=== PATIENT | male | born 1955 | race Two or more races ===

== ENCOUNTER 2019-09-28 13:03 | Emergency (ER) | payer MEDICAID ==
[~2019-09-28] VITALS: Ht 188 cm; Wt 77.1 kg
[~2019-09-28 13:03] MED LIST: CARISOPRODOL350 MG ORAL; ZYPREXA2.5 MG ORAL
[2019-09-28 13:16] VITALS: BP 149/100
--- NOTE | 2019-09-28 13:52 | Emergency Room Report ---
History of Present Illness General Chief Complaint: Generalized Weakness Source: Patient (Ela Lawton) Present Illness HPI 64-year-old male presents to the emergency department brought by ambulance for altered mental status. HPI and ROS are limited due to patient level of consciousness. Most information gathered from medications that were on his person. Medications suggestive of seizure disorder, hypothyROID, and BPH are found. Patient has history of spinal surgeries and neck surgery. Patient is mildly responsive to loud verbal or painful stimuli. Unable to hold conversation. (Ela Lawton) Allergies: Uncoded Allergies: PENICILLIN (Allergy, Unknown, 09/28/19) COVID-19 Screening Contact w/high risk pt: No Recent Travel to affected area: No Experienced COVID-19 symptoms?: No COVID-19 Testing performed MULTICUT LINE OPERATOR: No (Ela Lawton) Patient History Past Medical History: see triage record Past Surgical History: unable to obtain Pertinent Family History: unable to obtain Reviewed Nursing Documentation: PMH: Agreed; PSxH: Agreed (Ela Lawton) Nursing Documentation-PMH Past Medical History: No History, Except For Hx Cardiac Problems: No - respiratory failure History Of Psychiatric Problem: Yes (Ela Lawton) Review of Systems All Other Systems: limited (Ela Lawton) Physical Exam Vital Signs Date Time Temp Pulse Resp B/P (MAP) Pulse Ox O2 Delivery O2 Flow Rate FiO2 09/28/19 12:58 97.2 94 17 145/75 (98) Room Air 09/28/19 13:16 96 (Ela Lawton) Medical Decision Making PA Attestation Dr. Salas is my supervising Physician whom patient management has been discussed with. (Ela Lawton) Diagnostic Impression: Primary Impression: Rhabdomyolysis Qualified Codes: M62.82 - Rhabdomyolysis Additional Impression: Altered mental status Qualified Codes: R41.82 - Altered mental status, unspecified ER Course Pt. presents to the ED c/o altered level of consciousness - patient is arousable however not oriented. 64-year-old male presents to the emergency department brought by ambulance for altered mental status. HPI and ROS are limited due to patient level of consciousness. Most information gathered from medications that were on his person. Medications suggestive of seizure disorder, hypothyROID, and BPH are found. Patient has history of spinal surgeries and neck surgery. Patient is mildly responsive to loud verbal or painful stimuli. Unable to hold conversation. Pt is still moaning, arousable to loud verbal commands, or painful stimuli Ddx considered but are not limited to OD, SI/HI, psychosis, UTI, intoxication, intracranial process, ETOH, Sepsis Vital signs: are WNL, pt. is afebrile H&PE are most consistent with possible intoxication. There is no obvious signs of trauma. ORDERS: -ACCU-CHECK: 99 -EK bpm normal sinus rhythm with incomplete right bundle branch block, mildly prolonged QT interval 406/491.--This Interpretation was scribed by DOMI Lawton. -UA: -UDS: POSITIVE FOR Benzo, Opiates, THC, and cocaine -CT HEAD NO CONTRAST: Unremarkable ED INTERVENTIONS: - 1000cc NS + Maintenance DISPOSITION: at this time pt. will be admitted to [ ] for Rhabdomyolysis and AMS. [ ] agreed to admit the pt. and to continue pt. care management. (Ela Lawton) ER Course Patient seen and evaluated by my PA Jered please see her note for full history and physical Work-up included labs and CT. CT negative. Drug screen positive for multiple substances. Mild rhabdomyolysis noted. Patient remains altered. No signs of distress. I agree with admission. And endorsed to physician at [facility] (Troy Choudhary MD) EKG Diagnostic Results EP Interpretation: Dr. Salas Rate: normal - 88 Rhythm: NSR Other Impression QT prolongation -mild- 406/491 ASA given to the pt in ED: No PA Scribe Text This Interpretation was scribed by DOMI Lawton. (Ela Lawton) Last Vital Signs Date Time Temp Pulse Resp B/P (MAP) Pulse Ox O2 Delivery O2 Flow Rate FiO2 09/28/19 13:18 88 16 Room Air 09/28/19 13:16 97.2 149/100 96 (Ela Lawton) Status: improved (Troy Choudhary MD) Disposition: SHORT-TERM HOSP Condition: Serious Referrals: [facility],REFERRING (PCP) Ela Lawton September 28, 2019 13:52 Troy Choudhary MD September 28, 2019 17:28
[2019-09-28] MEDS ORDERED: Naloxone 1mg/ml 2ml IVP ONE (14:00)
--- NOTE | 2019-09-28 14:18 | Diagnostic Imaging Report ---
EXAM: CT Head Without Intravenous Contrast CLINICAL HISTORY: ALOC TECHNIQUE: Axial computed tomography images of the head/brain without intravenous contrast. CTDI is 53.4 mGy and DLP is 1179.1 mGy-cm. One or more of the following dose reduction techniques were used: automated exposure control, adjustment of the mA and/or kV according to patient size, use of iterative reconstruction technique. COMPARISON: None FINDINGS: Brain: No acute infarct or hemorrhage. No extra-axial fluid collection. No mass effect or midline shift. Ventricles and sulci: Normal. No ventriculomegaly or intraventricular hemorrhage. Bones: Plate and screw fixation of the right mandibular condyle. No bony lesion or fracture. Subcutaneous tissues: Normal. Sinuses: Mucosal thickening in the maxillary sinuses, sphenoid sinuses, ethmoid air cells, and frontal sinuses. Mastoid air cells: Normal. Orbits: Grossly unremarkable. Other: Atherosclerotic calcifications of the intracranial vasculature. IMPRESSION: No acute intracranial abnormality.
[2019-09-28 14:26] LABS: HEMOGLOBIN 14.7 G/DL (14.2-18.0); MEAN CORPUSCULAR VOLUME 92 FL (80-99); PLATELET COUNT 301 K/UL (150-450); RED BLOOD COUNT 4.58 M/UL (4.70-6.10); RED CELL DISTRIBUTION WIDTH 11.3 % (11.6-14.8); WHITE BLOOD COUNT 6.8 K/UL (4.8-10.8)
[2019-09-28 14:27] LABS: ANION GAP 12 mmol/L (5-15); BLOOD UREA NITROGEN 5 mg/dL (7-18); CALCIUM 8.7 MG/DL (8.5-10.1); CARBON DIOXIDE 24 MMOL/L (21-32); CHLORIDE 106 MMOL/L (98-107); CREATININE 1.1 MG/DL (0.55-1.30); INR 1.1 (0.9-1.1); POTASSIUM 3.8 MMOL/L (3.5-5.1); SODIUM 142 MMOL/L (136-145)
[2019-09-28 14:40] LABS: ALANINE AMINOTRANSFERASE 62 U/L (12-78); ALBUMIN 3.7 G/DL (3.4-5.0); ALKALINE PHOSPHATASE 108 U/L (46-116); ASPARTATE AMINO TRANSFERASE 79 U/L (15-37); BILIRUBIN,TOTAL 0.5 MG/DL (0.2-1.0); CREATINE KINASE 1197 U/L (26-308); PHOSPHORUS 3.4 MG/DL (2.5-4.9)
--- NOTE | 2019-09-28 15:54 | Diagnostic Imaging Report ---
EXAM: XR Chest, 1 View CLINICAL HISTORY: PAIN TECHNIQUE: Frontal view of the chest. COMPARISON: None FINDINGS: Hardware: None. Lungs/pleura: Normal. No focal consolidation. No pleural effusion or pneumothorax. Heart/mediastinum: Borderline size of the cardiac silhouette. Soft tissues: Unremarkable. Bones: No acute fracture. Cervical fusion hardware partially visualized. Upper abdomen: Normal. IMPRESSION: No acute disease identified.
[2019-09-28 16:49] VITALS: BP 155/101
[2019-09-28 18:29] VITALS: BP 162/112
[2019-09-28] MEDS ORDERED: Morphine Sulfate 2mg/ml Inj(IV/IM USE ONLY) IVP ONE (19:15)
[2019-09-28 19:38] VITALS: BP 135/85
[2019-09-28] MEDS ORDERED: Acetaminophen 500mg (ES) tab ORAL ONE (20:00)
[2019-09-28] MEDS ORDERED: Morphine Sulfate 4mg/ml Inj (IV USE ONLY) IVP ONE (20:00)
[2019-09-28 20:28] VITALS: BP 135/85
== END 2019-09-28 20:29 | disposition short-term general hospital (02) ==
LOC: EDBD 13:03 → EMR 13:47
DX: M62.82 Rhabdomyolysis (principal); R41.82 Altered mental status, unspecified; Z88.0 Allergy status to penicillin
CPT/HCPCS: 36415; 70450; 71045; 80053; 80307; 82140; 82550; 82962; 83735; 84100; 84484; 85007; 85025; 85610; 85730; 86900; 86901; 93005; 96361; 96374; 96375; 96376; G0480; J2270; J2310; J7030; Z7502; 99284

== ENCOUNTER 2019-12-16 16:53 | Inpatient (IN) | payer MEDICAID ==
[~2019-12-16] VITALS: Ht 182.9 cm; Wt 83.7 kg
[2019-12-16] MEDS ORDERED: Albuterol 90mcg Inhaler 8gm INH STA (17:23)
--- NOTE | 2019-12-16 17:27 | Emergency Room Report ---
History of Present Illness General Chief Complaint: Dyspnea/Respdistress Source: Medical Record Present Illness HPI 64-year-old male with a history of COPD, asthma, hypertension here with shortness of breath. Patient says that over the past 4 days he has been experiencing increased shortness of breath. He is a chronic every day smoker for the past 50 years. Says that he stopped smoking 4 days ago and has been using his albuterol inhaler many times a day without any relief. When paramedics arrived the patient was highly tachypneic and had an oxygen saturation of 89% on room air. He was put on 15 L nonrebreather with good resolution of his hypoxia. Patient however was still tachypneic and had coarseness and wheezing in all of his lung marin. Said he uses albuterol inhaler multiple times a day. Denies fevers, chills, chest pain, palpitation, back, abdominal pain, nausea, vomiting, diarrhea, dysuria, diaphoresis. Allergies: Uncoded Allergies: PENICILLIN (Allergy, Unknown, 09/28/19) COVID-19 Screening Contact w/high risk pt: No Recent Travel to affected area: No Experienced COVID-19 symptoms?: Yes COVID-19 Testing performed GOLD BLOWER: No Nursing Documentation-PMH Past Medical History: No History, Except For Hx Cardiac Problems: No - respiratory failure Hx Hypertension: Yes Hx Pacemaker: No Hx Asthma: Yes Hx COPD: No Hx Diabetes: No Hx Cancer: No Hx Gastrointestinal Problems: Yes - Hep C+ Hx Dialysis: No History Of Psychiatric Problem: No Hx Neurological Problems: No Hx Cerebrovascular Accident: No Hx Seizures: No Review of Systems All Other Systems: negative except mentioned in HPI Physical Exam Vital Signs Date Time Temp Pulse Resp B/P (MAP) Pulse Ox O2 Delivery O2 Flow Rate FiO2 12/16/19 17:03 98.6 92 20 163/113 (130) 100 Non-Rebreather 15.0 Sp02 EP Interpretation: reviewed, normal General Appearance: no apparent distress, alert, GCS 15, non-toxic Head: normocephalic, atraumatic Eyes: bilateral eye normal inspection, bilateral eye PERRL ENT: hearing grossly normal, normal pharynx, no angioedema, normal voice Neck: full range of motion, supple/symm/no masses Respiratory: chest non-tender, speaking full sentences, other - Coarse breath sounds and mild expiratory wheezes in all lung marin. Patient tachypneic around 25 to 30 breaths/min but able to speak in full sentences Cardiovascular #1: regular rate, rhythm, no edema Cardiovascular #2: 2+ carotid (R), 2+ carotid (L), 2+ radial (R), 2+ radial (L) , 2+ dorsalis pedis (R), 2+ dorsalis pedis (L) Gastrointestinal: normal bowel sounds, non tender, soft, non-distended, no guarding, no rebound Rectal: deferred Genitourinary: normal inspection, no CVA tenderness Musculoskeletal: back normal, normal range of motion, calf tenderness, gait/ station normal, non-tender Neurologic: alert, motor strength/tone normal, oriented x3, sensory intact, responsive, speech normal Psychiatric: judgement/insight normal, memory normal, mood/affect normal, no suicidal/homicidal ideation Reflexes: 3+ bicep (R), 3+ bicep (L), 3+ tricep (R), 3+ tricep (L), 3+ knee (R) , 3+ knee (L) Lymphatic: no adenopathy Medical Decision Making Diagnostic Impression: Primary Impression: Dyspnea Additional Impressions: Respiratory distress COPD exacerbation ER Course Total critical care time: Approximately 45 minutes Due to a high probability of clinically significant, life threatening deterioration, the patient required the highest level of preparedness to intervene emergently and I personally spent this critical care time directly and personally managing the patient. This critical care time included obtaining a history, examining the patient, pulse oximetry, ordering and reviewing studies , ordering treatments, evaluating response to treatment and updating management plan as needed, frequent reassessment and discussion with other providers as well as arranging for ultimate disposition. This critical to care time was performed to assess and manage the high probability of life-threatening deterioration that could result in multiorgan failure. This critical care time is separate from the separately billable procedures and treating other patients. EKG: NSR, no ischemia, intervals WNL. No ectopy Rhythm strip: patient monitored for arrhythmias - no malignant dysrhythmias, runs of PVCs, nor pauses noted Chest x-ray: Is a developing opacity right lower lobe. Lungs otherwise clear, no obvious consolidations. Lungs otherwise normal. Normal mediastinum. No free air. 64-year-old male here with shortness of breath. Patient had an oxygen saturation of 89% on room air according to the paramedics. He was put on 15 L nonrebreather and then transition down to a 4 L nonrebreather on arrival to the emergency department. He had normal oxygen saturation throughout his stay and had no evidence of any respiratory distress when he was given supplemental oxygen. He had diffuse wheezing and crackles in all lung marin on examination. Chest x-ray revealed possible developing opacity in the right lower lobe. COVID negative. Labs largely unremarkable. He was given albuterol metered-dose inhaler and then cover test came back negative at which point the patient was given a DuoNeb treatment. He said he felt much improved. Started on prophylactic antibiotics and given 125 mg IV Solu-Medrol. To be transferred to outside facility for admission. I spoke with the accepting physician who accepted the patient. Last Vital Signs Date Time Temp Pulse Resp B/P (MAP) Pulse Ox O2 Delivery O2 Flow Rate FiO2 12/16/19 17:03 98.6 92 20 163/113 (130) 100 Non-Rebreather 15.0 Jaquan Almonte M.D. Dec 16, 2019 17:27
[2019-12-16] MEDS ORDERED: Vancomycin 1 GM in NS 275 ML IV ONE (17:30)
[2019-12-16] MEDS ORDERED: Solu-MEDROL 125mg Inj IVP ONE (17:30)
[2019-12-16] MEDS ORDERED: Cefepime HCl 2 GM in NS 110 ML IV ONE (17:30)
[2019-12-16 17:45] LABS: BASOPHILS % (AUTO) 1.5 % (0.0-2.0); EOSINOPHILS % (AUTO) 10.1 % (0.0-3.0); HEMATOCRIT 43.6 % (42.0-52.0); HEMOGLOBIN 14.5 G/DL (14.2-18.0); LYMPHOCYTES % (AUTO) 36.4 % (20.0-45.0); MEAN CORPUSCULAR VOLUME 95 FL (80-99); MONOCYTES % (AUTO) 12.3 % (1.0-10.0); NEUTROPHILS % (AUTO) 39.6 % (45.0-75.0); PLATELET COUNT 323 K/UL (150-450); RED BLOOD COUNT 4.57 M/UL (4.70-6.10); RED CELL DISTRIBUTION WIDTH 11.8 % (11.6-14.8); WHITE BLOOD COUNT 6.2 K/UL (4.8-10.8)
[2019-12-16 17:48] VITALS: BP 153/102
[2019-12-16] MEDS: Albuterol/Ipratropium 3ml neb HHN SCH ×15 (18:15→21:23)
[2019-12-16 18:33] LABS: ANION GAP 10 mmol/L (5-15); BLOOD UREA NITROGEN 7 mg/dL (7-18); CALCIUM 9.3 MG/DL (8.5-10.1); CARBON DIOXIDE 24 MMOL/L (21-32); CHLORIDE 102 MMOL/L (98-107); CREATININE 0.9 MG/DL (0.55-1.30); POTASSIUM 4.2 MMOL/L (3.5-5.1); SODIUM 136 MMOL/L (136-145)
[2019-12-16 18:46] LABS: ALANINE AMINOTRANSFERASE 26 U/L (12-78); ALBUMIN/GLOBULIN RATIO 0.9 (1.0-2.7); ALKALINE PHOSPHATASE 97 U/L (46-116); ASPARTATE AMINO TRANSFERASE 30 U/L (15-37); BILIRUBIN,TOTAL 0.3 MG/DL (0.2-1.0); CREATINE KINASE 424 U/L (26-308); PHOSPHORUS 4.6 MG/DL (2.5-4.9)
[2019-12-16 18:56] VITALS: BP 159/91
[2019-12-16 19:00] VITALS: BP 155/100
[2019-12-16] MEDS ORDERED: PROSCAR5 MG ORAL (19:02)
[2019-12-16] MEDS ORDERED: METOPROLOL TAR100 MG ORAL (19:02)
[2019-12-16] MEDS ORDERED: LEVOTHYROXINE75 MCG ORAL (19:02)
[2019-12-16] MEDS ORDERED: NORCO 10-325 T1 EACH ORAL (19:02)
[2019-12-16] MEDS ORDERED: GABAPENTIN100 MG ORAL (19:02)
[2019-12-16 20:00] VITALS: BP 156/105
[2019-12-16 21:00] VITALS: BP 142/92
[2019-12-17 02:15] VITALS: BP 149/91
[2019-12-17] MEDS: Albuterol/Ipratropium 3ml neb HHN SCH ×6 (03:13→23:15)
[2019-12-17 04:00] VITALS: BP 147/97
[2019-12-17] MEDS: Solu-MEDROL 40mg Inj IVP SCH ×4 (05:30→23:38)
[2019-12-17 08:00] VITALS: BP 143/97
[2019-12-17] MEDS: Metoprolol Tartrate 100mg tab ORAL SCH ×2 (09:57→20:21)
[2019-12-17 12:00] VITALS: BP 127/91
[2019-12-17 16:00] VITALS: BP 142/82
--- NOTE | 2019-12-17 16:30 | History and Physical Report ---
DATE OF ADMISSION: 12/16/2019 HISTORY OF PRESENT ILLNESS: He presented to the hospital yesterday with shortness of breath. The patient states he has been wheezing and markedly short of breath. He is still an active smoker. He also reports he has hepatitis C and he is taking unknown medication prescribed to him by his the liver specialist. The patient was mildly hypoxemic. He received oxygen with improvement. He states he is feeling better. The patient appears to be angry and agitated and to leave AMA for unclear reasons. ALLERGIES: Penicillin. MEDICATIONS: His list of home medications include unknown medication for hepatitis C. He is on Proscar, Neurontin, [place], Synthroid, and Lopressor. He also received antibiotics as well as steroids in the emergency room, currently being continued. REVIEW OF SYSTEMS: Denies any headaches, hematemesis, melena, hematochezia, night sweats, or weight loss. PHYSICAL EXAMINATION: GENERAL: Reveals a 64-year-old male. VITAL SIGNS: Blood pressure 140/90, heart rate 94, respirations 20, O2 saturation 100% on 3 L of oxygen. HEENT: Unremarkable. CHEST: Shows few rhonchi bilaterally with prolonged expiration. CARDIOVASCULAR: Heart sounds are normal. ABDOMEN: Soft. EXTREMITIES: There is no edema. LABORATORY DATA: Lab testing is notable for normal CBC and glucose of 131, otherwise normal chemistry. IMAGING STUDIES: The patient underwent a chest x-ray, which showed possibly a right lung opacity, otherwise normal marin. IMPRESSION: 1. Right lung pneumonia. 2. Exacerbation of COPD. 3. Chronic pain. 4. Hypothyroidism. 5. History of chronic hepatitis C. DISCUSSION: Admit to the hospital. We will continue steroids. We will add Rocephin and azithromycin. We will follow carefully. Joon Dlae M.D. DR: DALILA JOB#: [id number] CC:
--- NOTE | 2019-12-17 17:27 | Diagnostic Imaging Report ---
Indication: Shortness of breath Technique: One view of the chest Comparison: 09/28/2019 Findings: Questionable faint nodular opacities are seen in the left midlung periphery. The lungs and pleural spaces are otherwise clear. The heart size is normal. Impression: Questionable peripheral opacities, could represent faint patchy infiltrates if real. Correlate with clinical findings
[2019-12-17 20:00] VITALS: BP 135/93
[2019-12-18] VITALS: BP 129/81
[2019-12-18] MEDS: Albuterol/Ipratropium 3ml neb HHN SCH ×5 (03:31→23:35)
[2019-12-18 04:00] VITALS: BP 130/88
[2019-12-18] MEDS: Solu-MEDROL 40mg Inj IVP SCH ×3 (05:29→17:59)
[2019-12-18 08:00] VITALS: BP 151/99
[2019-12-18] MEDS: Metoprolol Tartrate 100mg tab ORAL SCH ×2 (08:46→20:51)
[2019-12-18] MEDS: Azithromycin 250mg tab ORAL SCH (08:47)
[2019-12-18] MEDS: HYDROcodone/Acetamin 10/325 tab ORAL PRN ×2 (08:52→18:09)
--- NOTE | 2019-12-18 09:45 | Pulmonology Progress Note ---
Subjective Interval Events: Feeling better Constitutional: Reports: no symptoms HEENT: Repors: no symptoms Respiratory: Reports: dry cough, shortness of breath Cardiovascular: Reports: no symptoms Gastrointestinal/Abdominal: Reports: no symptoms Genitourinary: Reports: no symptoms Allergies: Coded Allergies: PENICILLINS (Verified Allergy, Severe, 12/17/19) Objective Last 24 Hour Vital Signs Date Time Temp Pulse Resp B/P (MAP) Pulse Ox O2 Delivery O2 Flow Rate FiO2 12/18/19 08:46 85 151/99 12/18/19 08:00 98.1 85 21 151/99 (116) 97 12/18/19 07:52 Nasal Cannula 3.0 32 12/18/19 04:00 98.0 72 18 130/88 (102) 95 12/18/19 03:32 82 18 99 Nasal Cannula 3.0 32 78 18 97 12/18/19 00:00 97.7 61 18 129/81 (97) 95 12/17/19 23:15 88 18 99 Nasal Cannula 3.0 32 84 18 96 12/17/19 22:18 Nasal Cannula 2.0 12/17/19 20:21 84 142/82 12/17/19 20:00 98.1 86 21 135/93 (107) 98 12/17/19 19:55 84 18 100 Nasal Cannula 3.0 32 89 18 97 12/17/19 19:55 Nasal Cannula 3.0 32 12/17/19 16:00 98.9 71 21 142/82 (102) 98 12/17/19 15:44 78 18 98 Nasal Cannula 3.0 32 74 18 96 12/17/19 12:11 89 18 100 Nasal Cannula 3.0 32 86 18 99 12/17/19 12:00 97.7 78 19 127/91 (103) 98 12/17/19 09:57 104 144/92 Intake and Output 12/17/19 12/18/19 19:00 07:00 Intake Total 800 ml Balance 800 ml Intake Oral 800 ml # Voids 6 2 General Appearance: no acute distress HEENT: normocephalic Respiratory: chest wall non-tender, rhonchi - bilaterally Cardiovascular: normal peripheral pulses, normal rate Abdomen: normal bowel sounds Microbiology Date/Time Source Procedure Growth Status 12/16/19 17:10 Blood Blood Culture - Preliminary NO GROWTH AFTER 24 HOURS Resulted 12/16/19 17:00 Blood Blood Culture - Preliminary NO GROWTH AFTER 24 HOURS Resulted 12/16/19 17:15 Nasopharynx SARS-CoV-2 RdRp Gene Assay - Final Complete Current Medications Medications (Trade) Dose Ordered Sig/To Route PRN Reason Start Time Stop Time Status Last Admin Dose Admin Acetaminophen/ Hydrocodone Bitart ([place] 10/325) 1 tab Q6H PRN ORAL For Pain 12/17/19 02:30 12/24/19 02:29 12/18/19 08:52 Albuterol/ Ipratropium (Albuterol/ Ipratropium) 3 ml Q4HRT HHN 12/17/19 03:00 12/22/19 02:59 12/18/19 03:31 Azithromycin (Zithromax) 500 mg DAILY ORAL 12/18/19 09:00 12/25/19 08:59 12/18/19 08:47 Finasteride (Proscar) 5 mg DAILY ORAL 12/17/19 09:00 03/16/20 08:59 12/18/19 08:47 Gabapentin (Neurontin) 100 mg THREE TIMES A DAY ORAL 12/17/19 09:00 01/16/20 08:59 12/18/19 08:46 Levothyroxine Sodium (Synthroid) 75 mcg DAILY@0630 ORAL 12/17/19 06:30 01/16/20 06:29 12/18/19 05:30 Methylprednisolone Sodium Succinate (Solu-MEDROL) 40 mg EVERY 6 HOURS IVP 12/17/19 06:00 03/16/20 05:59 12/18/19 05:29 Metoprolol Tartrate (Lopressor) 100 mg EVERY 12 HOURS ORAL 12/17/19 09:00 03/16/20 08:59 12/18/19 08:46 Assessment/Plan Assessment/Plan IMPRESSION: 1. Right lung pneumonia. 2. Exacerbation of COPD. 3. Chronic pain. 4. Hypothyroidism. 5. History of chronic hepatitis C. DISCUSSION: Continue steroids. Continue add Rocephin and azithromycin. I will follow carefully. DC planning Jenn Rivero Omar Syed MD Dec 18, 2019 09:45
[2019-12-18 12:00] VITALS: BP 145/95
[2019-12-18 16:00] VITALS: BP 133/60
[2019-12-18 20:00] VITALS: BP 151/108
[2019-12-19] VITALS: BP 149/77
[2019-12-19] MEDS: HYDROcodone/Acetamin 10/325 tab ORAL PRN ×2 (00:19→08:25)
[2019-12-19] MEDS: Solu-MEDROL 40mg Inj IVP SCH ×3 (00:19→11:55)
[2019-12-19] MEDS: Albuterol/Ipratropium 3ml neb HHN SCH ×3 (02:26→11:19)
[2019-12-19 04:00] VITALS: BP 134/91
[2019-12-19 06:31] LABS: BASOPHILS % (AUTO) 0.4 % (0.0-2.0); EOSINOPHILS % (AUTO) 0.1 % (0.0-3.0); HEMATOCRIT 43.4 % (42.0-52.0); HEMOGLOBIN 14.5 G/DL (14.2-18.0); LYMPHOCYTES % (AUTO) 15.1 % (20.0-45.0); MEAN CORPUSCULAR VOLUME 94 FL (80-99); MONOCYTES % (AUTO) 3.3 % (1.0-10.0); NEUTROPHILS % (AUTO) 81.2 % (45.0-75.0); PLATELET COUNT 322 K/UL (150-450); RED BLOOD COUNT 4.59 M/UL (4.70-6.10); RED CELL DISTRIBUTION WIDTH 11.9 % (11.6-14.8); WHITE BLOOD COUNT 7.8 K/UL (4.8-10.8)
[2019-12-19 06:57] LABS: ANION GAP 8 mmol/L (5-15); BLOOD UREA NITROGEN 16 mg/dL (7-18); CARBON DIOXIDE 28 MMOL/L (21-32); CHLORIDE 101 MMOL/L (98-107); CREATININE 0.7 MG/DL (0.55-1.30); POTASSIUM 4.4 MMOL/L (3.5-5.1); SODIUM 137 MMOL/L (136-145)
[2019-12-19 08:00] VITALS: BP 144/96
[2019-12-19] MEDS: Azithromycin 250mg tab ORAL SCH (08:20)
[2019-12-19] MEDS: Metoprolol Tartrate 100mg tab ORAL SCH (08:20)
--- NOTE | 2019-12-19 11:51 | Pulmonology Progress Note ---
Subjective Interval Events: Feeling better Constitutional: Reports: no symptoms HEENT: Repors: no symptoms Respiratory: Reports: dry cough, shortness of breath Cardiovascular: Reports: no symptoms Gastrointestinal/Abdominal: Reports: no symptoms Genitourinary: Reports: no symptoms Allergies: Coded Allergies: PENICILLINS (Verified Allergy, Severe, 12/17/19) Objective Last 24 Hour Vital Signs Date Time Temp Pulse Resp B/P (MAP) Pulse Ox O2 Delivery O2 Flow Rate FiO2 12/19/19 08:30 Nasal Cannula 2.0 12/19/19 08:20 67 134/91 12/19/19 08:00 98.1 89 20 144/96 (112) 94 12/19/19 07:50 82 18 97 Nasal Cannula 2.0 28 84 18 94 12/19/19 07:49 Nasal Cannula 2.0 28 12/19/19 04:00 97.9 67 18 134/91 (105) 95 12/19/19 02:27 80 18 99 Nasal Cannula 2.0 28 82 18 96 12/19/19 00:00 97.2 67 18 149/77 (101) 94 12/18/19 23:42 79 18 100 Nasal Cannula 2.0 28 77 18 97 12/18/19 21:00 Nasal Cannula 2.0 12/18/19 20:51 88 151/108 12/18/19 20:00 97.5 88 19 151/108 (122) 98 12/18/19 19:14 80 18 99 Nasal Cannula 2.0 28 83 18 96 12/18/19 19:14 Nasal Cannula 2.0 28 12/18/19 16:00 97.1 73 20 133/60 (84) 97 12/18/19 12:00 97.3 63 21 145/95 (112) 96 Intake and Output 12/18/19 12/19/19 19:00 07:00 Intake Total 1440 ml Output Total 300 ml Balance 1140 ml Intake Oral 1440 ml Output Urine Total 300 ml # Voids 1 2 General Appearance: no acute distress HEENT: normocephalic Respiratory: chest wall non-tender, rhonchi - bilaterally Cardiovascular: normal peripheral pulses, normal rate Abdomen: normal bowel sounds Microbiology Date/Time Source Procedure Growth Status 12/16/19 17:10 Blood Blood Culture - Preliminary NO GROWTH AFTER 48 HOURS Resulted 12/16/19 17:00 Blood Blood Culture - Preliminary NO GROWTH AFTER 48 HOURS Resulted 12/16/19 17:15 Nasopharynx SARS-CoV-2 RdRp Gene Assay - Final Complete Laboratory Tests 12/19/19 05:20: White Blood Count 7.8, Red Blood Count 4.59L, Hemoglobin 14.5, Hematocrit 43.4, Mean Corpuscular Volume 94, Mean Corpuscular Hemoglobin 31.6H, Mean Corpuscular Hemoglobin Concent 33.4, Red Cell Distribution Width 11.9, Platelet Count 322, Mean Platelet Volume 5.2L, Neutrophils (%) (Auto) 81.2H, Lymphocytes (%) (Auto) 15.1L, Monocytes (%) (Auto) 3.3, Eosinophils (%) (Auto) 0.1, Basophils (%) (Auto ) 0.4, Sodium Level 137, Potassium Level 4.4, Chloride Level 101, Carbon Dioxide Level 28, Anion Gap 8, Blood Urea Nitrogen 16, Creatinine 0.7, Estimat Glomerular Filtration Rate > 60, Glucose Level 128H, Calcium Level 9.0 Current Medications Medications (Trade) Dose Ordered Sig/To Route PRN Reason Start Time Stop Time Status Last Admin Dose Admin Acetaminophen/ Hydrocodone Bitart ([place] 10/325) 1 tab Q6H PRN ORAL For Pain 12/17/19 02:30 12/24/19 02:29 12/19/19 08:25 Albuterol/ Ipratropium (Albuterol/ Ipratropium) 3 ml Q4HRT HHN 12/17/19 03:00 12/22/19 02:59 12/19/19 11:19 Azithromycin (Zithromax) 500 mg DAILY ORAL 12/18/19 09:00 12/25/19 08:59 12/19/19 08:20 Finasteride (Proscar) 5 mg DAILY ORAL 12/17/19 09:00 03/16/20 08:59 12/19/19 08:20 Gabapentin (Neurontin) 100 mg THREE TIMES A DAY ORAL 12/17/19 09:00 01/16/20 08:59 12/19/19 08:20 Levothyroxine Sodium (Synthroid) 75 mcg DAILY@0630 ORAL 12/17/19 06:30 01/16/20 06:29 12/19/19 05:51 Methylprednisolone Sodium Succinate (Solu-MEDROL) 40 mg EVERY 6 HOURS IVP 12/17/19 06:00 03/16/20 05:59 12/19/19 05:51 Metoprolol Tartrate (Lopressor) 100 mg EVERY 12 HOURS ORAL 12/17/19 09:00 03/16/20 08:59 12/19/19 08:20 Assessment/Plan Assessment/Plan IMPRESSION: 1. Right lung pneumonia. 2. Exacerbation of COPD. 3. Chronic pain. 4. Hypothyroidism. 5. History of chronic hepatitis C. DISCUSSION: Dc home PO steroid and abx Jenn Rivero Omar Syed MD Dec 19, 2019 11:51
[2019-12-19] MEDS ORDERED: MEDROL DOSEPAK4 MG ORAL (11:53)
[2019-12-19] MEDS ORDERED: AZITHROMYCIN500 MG ORAL (11:53)
[2019-12-19 12:00] VITALS: BP 138/98
--- NOTE | 2019-12-21 14:40 | Discharge Summary ---
Discharge Summary Discharge Summary _ DATE OF ADMISSION: 12/16/2019 DATE OF DISCHARGE: 12/19/2019 DISCHARGED BY: Dr. Jake Dael BRIEF HOSPITAL COURSE: Patient is a 64-year-old male who presented to the hospital due to shortness of breath. Patient has been wheezing and was markedly short of breath. He is an active smoker. He reported hepatitis C as well as taking unknown medication prescribed by his liver specialist. Patient stated he has been using his albuterol inhaler many times a day without any relief. When paramedics arrived , patient was highly tachypneic and had oxygen saturation of 89% on room air. He was placed on 6 L nonrebreather mask with good resolution of his hypoxia. He was then taken to ED for further evaluation Upon arrival to ED, blood pressure was 163/113, he was saturating 100% on 15 L nonrebreather mask. EKG showed normal sinus rhythm with no ischemia. Chest x- ray showed a developing right lower opacity. Rapid COVID testing was negative. Blood work was fairly unremarkable. He was given albuterol metered-dose inhaler. He was given DuoNeb treatment after a negative COVID test. He was started on prophylactic antibiotics and was given 125 mg IV Solu-Medrol. Patient was initially planned for transfer to outside facility however transfer was not done. Patient was admitted to medical floor for COPD exacerbation. Patient was admitted to monitored floor. He was continued on IV steroids. He was given Rocephin and azithromycin. He was given O2 support. Home medications were continued. O2 was titrated down. Patient was cleared for discharge home. To continue p.o. antibiotics and steroids. FINAL DIAGNOSES: Right lung pneumonia Exacerbation of COPD Chronic pain Hypothyroidism History of chronic hepatitis C DISPOSITION: Patient was discharged home. DISCHARGE MEDICATIONS: Refer to Discharge Medication List. DISCHARGE INSTRUCTIONS: Follow-up in a week. I have been assigned to complete a discharge summary on this account, I was not involved with the patient's management.--SHERLYN Franklin Jacqueline Robles NP Dec 21, 2019 14:40
== END 2019-12-19 13:35 | disposition home or self-care (01) | DRG 140 ==
LOC: EDBD 16:53 → EMR 17:15 → 4E 23:30 → EDBEDREQSVC 12-17 00:54 → EDBEDREQ 12-17 01:19 → 4E 12-17 02:30
DX: J44.0 Chronic obstructive pulmonary disease with (acute) lower respiratory infection (principal); J44.1 Chronic obstructive pulmonary disease with (acute) exacerbation; J18.9 Pneumonia, unspecified organism; E03.9 Hypothyroidism, unspecified; B18.2 Chronic viral hepatitis C; Z88.0 Allergy status to penicillin; F17.200 Nicotine dependence, unspecified, uncomplicated; G89.29 Other chronic pain
CPT/HCPCS: 36415; 71045; 80048; 80053; 82550; 83605; 83735; 83880; 84100; 84484; 85025; 87040; 93005; 94640; 96365; 96368; 96375; 99291; J7620; U0002